=== PATIENT | female | born 1995 | race Caucasian/White ===

== ENCOUNTER 2017-02-28 22:12 | Emergency (ER) | payer OTHER ==
[~2017-02-28] VITALS: Ht 124.5 cm; Wt 45.4 kg
[2017-02-28 22:33] VITALS: BP 123/86
--- NOTE | 2017-03-01 00:35 | ED GI/GU/ABDOMINAL COMPLAINT ---
History of Present Illness General Chief Complaint: Abdominal Pain/Flank Pain Stated Complaint: R SIDED ABD PAIN Source: patient Exam Limitations: no limitations Vital Signs & Intake/Output Vital Signs & Intake/Output Vital Signs Date Time Temp Pulse Resp B/P B/P Pulse O2 O2 Flow FiO2 Mean Ox Delivery Rate 03/01 0427 97 Room Air 02/28 2233 96.4 124 18 123/86 96 Room Air ED Intake and Output 03/01 0000 02/28 1200 Intake Total Output Total Balance Patient 99 lb 15.99 oz Weight Weight Reported by Patient Measurement Method Allergies Coded Allergies: No Known Allergies (02/28/17) Triage Note: PT FROM HOME C/O RLQ PAIN 08/15. PT STATES AROUND 0400 SHE AWOKE WITH SHARP SHOOTING CONSTANT RLQ PAIN RADIATING TO PTS BACK THROUGHOUT THE DAY. PT STATES SHE TOOK 1 PILL GAS-X IN THE AFTERNOON TO SEE IF THAT WOULD RELIEVE THE PAIN. PT STATES 08/15 CURRENTLY WITH +NAUSEA. NO ACUTE DISTRESS NOTED IN TRIAGE. AFEBRILE IN TRIAGE. Triage Nurses Notes Reviewed? yes ? n Is pt currently ? No Duration: day(s):, waxing and waning Timing: recent history Quality/Severity: throbbing Location: right lower quadrant Radiation: no radiation Activities at Onset: none Prior Abdominal Problems: none Modifying Factors: Worsens With: palpation. Associated Symptoms: abdominal pain HPI: 21 yo woman in prior good health presents with right lower quadarant abdominal pain that began this morning. She notes normal BM's, no dysuria, nausea, vomiting, diarrhea. She is otherwise well, but notes that the pain has gotten worse over the past several hours. She is otherwise well. Past History Travel History Traveled to [place] past 21 day No Medical History Any Pertinent Medical History? see below for history Neurological: NONE EENT: NONE Cardiovascular: NONE Respiratory: NONE Gastrointestinal: NONE Hepatic: NONE Renal: NONE Musculoskeletal: NONE Psychiatric: anxiety Endocrine: NONE Surgical History Surgical History: none Psychosocial History What is your primary language Uzbek Tobacco Use: Never used Family History Hx Contributory? No Review of Systems Review of Systems Constitutional: Reports: no symptoms. EENTM: Reports: no symptoms. Respiratory: Reports: no symptoms. Cardiovascular: Reports: no symptoms. GI: Reports: no symptoms. Genitourinary: Reports: no symptoms. Musculoskeletal: Reports: no symptoms. Skin: Reports: no symptoms. Neurological/Psychological: Reports: no symptoms. Hematologic/Endocrine: Reports: no symptoms. Immunologic/Allergic: Reports: no symptoms. All Other Systems: Reviewed and Negative Physical Exam Physical Exam General Appearance: well developed/nourished, mild distress Head: atraumatic, normal appearance Eyes: Bilateral: normal appearance. Ears, Nose, Throat, Mouth: hearing grossly normal, moist mucous membrane Neck: normal inspection, supple, full range of motion Respiratory: normal breath sounds, chest non-tender, no respiratory distress, quiet respiration, lungs clear Cardiovascular: regular rate/rhythm Gastrointestinal: normal bowel sounds, soft, rlq tenderness. no rebound. no guarding. Back: normal inspection, normal range of motion Extremities: normal range of motion Neurologic/Psych: no motor/sensory deficits, awake, alert, oriented x 3 Skin: intact, normal color, warm/dry Core Measures ACS in differential dx? No Sepsis Present: No Sepsis Focused Exam Completed? No Progress Differential Diagnosis: appendicitis, biliary colic, bowel obstruction, uti vs other. Plan of Care: Orders Procedure Date/time Status LIPASE 02/28 2300 Complete HEPATIC FUNCTION PANEL 02/28 2300 Complete CBC WITHOUT DIFFERENTIAL 02/28 2300 Complete BASIC METABOLIC PANEL 02/28 2300 Complete AMYLASE 02/28 2300 Complete URINE 02/28 2241 Complete URINALYSIS 02/28 2241 Complete Laboratory Tests 03/01/17 0100: Anion Gap 16, Estimated GFR > 60, BUN/Creatinine Ratio 18.0, Glucose 90, Calcium 9.9, Total Bilirubin 0.3, Direct Bilirubin 0.2, AST 30, ALT 41, Alkaline Phosphatase 61, Total Protein 7.4, Albumin 4.6, Amylase 72, Lipase 81, CBC w Diff NO MAN DIFF REQ, RBC 4.58, MCV 87.6, MCH 29.6, RDW 13.1, MPV 8.5, Gran % 52.1, Lymphocytes % 34.1, Monocytes % 11.2 H, Eosinophils % 1.8, Basophils % 0.8, Absolute Granulocytes 3.5, Absolute Lymphocytes 2.3, Absolute Monocytes 0.8 H, Absolute Eosinophils 0.1, Absolute Basophils 0.1, PUBS MCHC 33.8 02/28/17 2316: Urinalysis LIGHT H, Urine Color YEL, Urine Clarity HAZY H, Urine pH 6.0, Ur Specific [place]lman >= 1.030, Urine Protein NEG, Urine Ketones 15 H, Urine Nitrite NEG, Urine Bilirubin NEG@ICTO, Urine Urobilinogen 0.2, Ur Leukocyte Esterase NEG , Ur Microscopic SEDIMENT EXAMINED, Urine RBC 1-3, Urine WBC 1-3 H, Ur Epithelial Cells PACKD H, Urine Bacteria FEW H, Urine Mucus FEW, Urine Hemoglobin NEG, Urine Glucose NEG, Urine Test NEGATIVE Diagnostic Imaging: Viewed by Me: CT Scan. Discussed w/RAD: CT Scan. Radiology Impression: PATIENT: HIWOT BRITTON PRESENT AGE: 21 PATIENT ACCOUNT NO: [id number] : 96 LOCATION: [facility] ORDERING PHYSICIAN: Javier Fritz MD SERVICE DATE: 03/01/17 EXAM TYPE: CAT - CT ABD & PELVIS W/O IV CONTRAS EXAMINATION: CT ABDOMEN AND PELVIS WITHOUT CONTRAST CLINICAL INFORMATION: Right lower quadrant pain COMPARISON: None TECHNIQUE: Multidetector volumetric imaging was performed from the superior aspect of the liver through the pubic symphysis. Sagittal and coronal reformatted images were obtained on the technologist's workstation. DLP: 248.90 mGy-cm FINDINGS: LUNG BASES: There are relatively mild patchy regions of consolidation in the bilateral lower lobes. LIVER, GALLBLADDER, AND BILIARY TREE : The liver is normal in size, shape, and attenuation. No focal hepatic lesion or biliary ductal dilatation is present. The gallbladder appears unremarkable. PANCREAS: Unremarkable. SPLEEN: Unremarkable. ADRENAL GLANDS: Unremarkable. KIDNEYS AND URETERS: The kidneys are normal in size, shape, and attenuation. No hydronephrosis, hydroureter, or calculi seen. No perinephric stranding. BLADDER: Unremarkable. GASTROINTESTINAL TRACT: No evidence of bowel obstruction. No significant bowel wall thickening or pericolonic inflammatory change is seen. The appendix appears nondilated. ABDOMINAL WALL: No significant hernia is appreciated. LYMPH NODES: There is limited evaluation for lymphadenopathy in the absence of intravenous contrast. VASCULAR: Unremarkable. PELVIC VISCERA: Grossly unremarkable. A small volume of free fluid is present in the pelvis. OSSEOUS STRUCTURES: Unremarkable. IMPRESSION: 1. Patchy pulmonary opacities in the bilateral lower lobes, suggestive of pneumonia. 2. No findings to suggest appendicitis. 3. Nonspecific small volume of pelvic free fluid which may be physiologic. DICTATED BY: Mayito Chaves MD DATE/TIME DICTATED:03/01/17121 PROGRAM TRAINER:SHAYLA DATE/TIME TRANSCRIBED:03/01/17121 CONFIDENTIAL, DO NOT COPY WITHOUT APPROPRIATE AUTHORIZATION. <Electronically signed in Other Vendor System> SIGNED BY: Mayito Chaves MD 03/01/17131 Initial ED EKG: none Departure Departure Disposition: HOME OR SELF CARE Condition: Stable Clinical Impression Primary Impression: Abdominal pain Referrals: Patient Has No Primary Care Dr (PCP/Family) Departure Forms: Customer Survey General Discharge Information Comments ct scan negative, labs benign... discussed at length... pt feels comfortable at discharge.
[2017-03-01 01:32] LABS: ABSOLUTE BASOPHIL COUNT 0.1 /CUMM (0.0-0.2); ABSOLUTE EOSINOPHIL COUNT 0.1 /CUMM (0.0-0.7); ABSOLUTE GRANULOCYTE CT 3.5 /CUMM (1.4-6.5); ABSOLUTE LYMPH COUNT 2.3 /CUMM (1.2-3.4); ABSOLUTE MONOCYTE COUNT 0.8 /CUMM (0.10-0.60); BASOPHIL % 0.8 % (0.0-2.0); EOSINOPHIL % 1.8 % (0-5); GRANULOCYTE % 52.1 % (42.2-75.2); HEMATOCRIT 40.1 % (37-47); MEAN CORPUSCULAR HGB 29.6 PG (27.0-31.0); MEAN CORPUSCULAR HGB CONC 33.8 G/DL (33.0-37.0); MEAN CORPUSCULAR VOLUME 87.6 FL (81.0-99.0); MEAN PLATELET VOLUME 8.5 FL (7.4-10.4); PLATELET COUNT 257 /CUMM (130-400); RBC DISTRIBUTION WIDTH 13.1 % (11.5-14.5); RED BLOOD CELL CT 4.58 /CUMM (4.20-5.40); WHITE BLOOD CELL COUNT 6.7 /CUMM (4.8-10.8)
--- NOTE | 2017-03-01 01:32 | CT SCAN REPORT ---
EXAMINATION: CT ABDOMEN AND PELVIS WITHOUT CONTRAST CLINICAL INFORMATION: Right lower quadrant pain COMPARISON: None TECHNIQUE: Multidetector volumetric imaging was performed from the superior aspect of the liver through the pubic symphysis. Sagittal and coronal reformatted images were obtained on the technologist's workstation. DLP: 248.90 mGy-cm FINDINGS: LUNG BASES: There are relatively mild patchy regions of consolidation in the bilateral lower lobes. LIVER, GALLBLADDER, AND BILIARY TREE: The liver is normal in size, shape, and attenuation. No focal hepatic lesion or biliary ductal dilatation is present. The gallbladder appears unremarkable. PANCREAS: Unremarkable. SPLEEN: Unremarkable. ADRENAL GLANDS: Unremarkable. KIDNEYS AND URETERS: The kidneys are normal in size, shape, and attenuation. No hydronephrosis, hydroureter, or calculi seen. No perinephric stranding. BLADDER: Unremarkable. GASTROINTESTINAL TRACT: No evidence of bowel obstruction. No significant bowel wall thickening or pericolonic inflammatory change is seen. The appendix appears nondilated. ABDOMINAL WALL: No significant hernia is appreciated. LYMPH NODES: There is limited evaluation for lymphadenopathy in the absence of intravenous contrast. VASCULAR: Unremarkable. PELVIC VISCERA: Grossly unremarkable. A small volume of free fluid is present in the pelvis. OSSEOUS STRUCTURES: Unremarkable. IMPRESSION: 1. Patchy pulmonary opacities in the bilateral lower lobes, suggestive of pneumonia. 2. No findings to suggest appendicitis. 3. Nonspecific small volume of pelvic free fluid which may be physiologic.
== END 2017-03-01 04:45 ==
LOC: ERH 22:12
PROVIDERS: Pediatrics
DX: R10.31 Right lower quadrant pain (principal)
CPT/HCPCS: 74176; 81001; 81025; 96372; J1885